=== PATIENT | female | born 1985 | race Caucasian/White ===

== ENCOUNTER 2017-12-04 23:17 | Inpatient (IN) | payer MEDICAID ==
[2017-12-05] MEDS: LACTATED RINGER'S 500 ML IV (00:15)
[2017-12-05 00:27] LABS: ADD MAN DIFF? NO
[2017-12-05] MEDS ORDERED: CARBOPROST 250 MCG INJ IM ×2 (00:30→05:30)
[2017-12-05] MEDS ORDERED: MISOPROSTOL 200 MCG TAB PR ×2 (00:30→05:30)
[2017-12-05] MEDS ORDERED: OXYTOCIN 30 UNITS/LR 500 ML IV ×2 (00:30→05:30)
[2017-12-05] MEDS ORDERED: LACTATED RINGER'S 500 ML IV (00:30)
[2017-12-05] MEDS ORDERED: METHYLERGONOVINE 0.2 MG INJ IM ×2 (00:30→05:30)
[2017-12-05] MEDS: LACTATED RINGER'S 1,000 ML IV ×4 (00:31→22:08)
[2017-12-05 00:48] LABS: BASOPHIL # 0.1 10^3/ul (0.0-0.1); BASOPHILS % 0.4 % (0.0-2.0); EOSINOPHILS # 0.1 10^3/ul (0.0-0.5); EOSINOPHILS % 0.4 % (0.0-7.0); HEMATOCRIT 41.3 % (37.0-47.0); HEMOGLOBIN 14.4 g/dl (12.0-16.0); LYMPHOCYTES # 2.8 10^3/ul (0.8-2.9); LYMPHOCYTES % 19.8 % (15.0-51.0); MEAN CORPUSCULAR HEMOGLOBIN 31.8 pg (29.0-33.0); MEAN CORPUSCULAR HGB CONC 34.9 g/dl (32.0-37.0); MEAN CORPUSCULAR VOLUME 91.2 fl (82.0-101.0); MEAN PLATELET VOLUME 12.2 fl (7.4-10.4); MONOCYTE # 0.9 10^3/ul (0.3-0.9); MONOCYTES % 6.6 % (0.0-11.0); NEUTROPHILS % 71.6 % (39.0-77.0); PLATELET COUNT 159 10^3/UL (140-415); RED BLOOD COUNT 4.53 10^6/ul (4.20-5.40); RED CELL DISTRIBUTION WIDTH 13.5 % (11.5-14.5)
[2017-12-05 00:53] LABS: INR 0.95; PROTIME 12.8 Sec (11.9-14.9)
[2017-12-05 00:54] LABS: PARTIAL THROMBOPLASTIN TIME 27.2 Sec (25.0-35.0)
[2017-12-05 01:25] LABS: HEPATITIS B SURFACE ANTIGEN NEGATIVE (NEGATIVE)
[2017-12-05] MEDS ORDERED: PHENYLephrine (100 MCG/ML) 5ML SYG ×4 (01:28→02:42)
[2017-12-05] MEDS ORDERED: morphine SULFATE/PF (10 MG/10 ML) INJ (01:28)
[2017-12-05] MEDS ORDERED: ONDANSETRON 4 MG INJ (01:28)
[2017-12-05] MEDS ORDERED: OXYTOCIN 10 UNIT INJ (01:28)
[2017-12-05] MEDS: CEFAZOLIN 2 GM/50 ML (PMX) 50 ML IV (01:30)
[2017-12-05] MEDS ORDERED: morphine 2 MG INJ IV (02:00)
[2017-12-05] MEDS ORDERED: NALOXONE (0.4 MG/ML) INJ IV (02:00)
[2017-12-05] MEDS: OXYTOCIN 30 UNITS/LR 500 ML IV (03:57)
[2017-12-05] MEDS: DIPHENHYDRAMINE 50 MG INJ IV (04:08)
[2017-12-05] MEDS: ONDANSETRON 4 MG INJ IV (04:10)
[2017-12-05] MEDS ORDERED: ONDANSETRON 4 MG INJ IV (05:30)
[2017-12-05] MEDS ORDERED: ZOLPIDEM 5 MG TAB PO (05:30)
[2017-12-05] MEDS: IBUPROFEN 600 MG TAB PO ×3 (06:00→17:30)
[2017-12-05] MEDS: KETOROLAC 30 MG INJ IV ×3 (06:02→22:08)
[2017-12-05] MEDS ORDERED: OXYTOCIN 30 UNITS/LR 500 ML BAG IV (07:00)
[2017-12-05] MEDS: SENNA/DOCUSATE NA (8.6MG/50MG) TAB PO ×2 (09:26→21:00)
[2017-12-05 18:35] LABS: RAPID PLASMA REAGIN NONREACTIVE (NR)
[2017-12-05] MEDS: LANOLIN 7 GM TUBE TOP (22:08)
[2017-12-06] MEDS ORDERED: OXYCODONE/ACETAMINOPHEN (5/325) TAB PO (01:25)
[2017-12-06] MEDS ORDERED: DIPHENHYDRAMINE 50 MG INJ IV (01:25)
[2017-12-06] MEDS: OXYCODONE/ACETAMINOPHEN (5/325) TAB PO ×2 (01:56→21:19)
[2017-12-06] MEDS: IBUPROFEN 600 MG TAB PO ×5 (05:38→23:53)
[2017-12-06 07:51] LABS: ADD MAN DIFF? NO
[2017-12-06 08:00] LABS: BASOPHILS % 0.2 % (0.0-2.0); EOSINOPHILS % 0.2 % (0.0-7.0); HEMATOCRIT 36.4 % (37.0-47.0); HEMOGLOBIN 12.5 g/dl (12.0-16.0); LYMPHOCYTES # 2.1 10^3/ul (0.8-2.9); LYMPHOCYTES % 12.5 % (15.0-51.0); MEAN CORPUSCULAR HEMOGLOBIN 31.6 pg (29.0-33.0); MEAN CORPUSCULAR HGB CONC 34.3 g/dl (32.0-37.0); MEAN CORPUSCULAR VOLUME 92.2 fl (82.0-101.0); MEAN PLATELET VOLUME 11.4 fl (7.4-10.4); MONOCYTE # 1.4 10^3/ul (0.3-0.9); MONOCYTES % 7.9 % (0.0-11.0); NEUTROPHIL # 13.4 10^3/ul (1.6-7.5); NEUTROPHILS % 78.1 % (39.0-77.0); PLATELET COUNT 138 10^3/UL (140-415); RED BLOOD COUNT 3.95 10^6/ul (4.20-5.40); RED CELL DISTRIBUTION WIDTH 14.1 % (11.5-14.5)
[2017-12-06 08:00] LABS: WHITE BLOOD COUNT 17.1 10^3/ul (4.8-10.8)
[2017-12-06] MEDS: SENNA/DOCUSATE NA (8.6MG/50MG) TAB PO ×2 (08:26→21:19)
[2017-12-07] MEDS: IBUPROFEN 600 MG TAB PO ×4 (05:51→23:27)
[2017-12-07] MEDS: SENNA/DOCUSATE NA (8.6MG/50MG) TAB PO ×2 (09:19→21:42)
[2017-12-08] MEDS: IBUPROFEN 600 MG TAB PO ×2 (05:37→12:00)
[2017-12-08] MEDS: SENNA/DOCUSATE NA (8.6MG/50MG) TAB PO ×2 (08:16→12:21)
[2017-12-08] MEDS: LANOLIN 7 GM TUBE TOP (08:17)
[2017-12-08] MEDS: DIPHTH/TET/ACEL PERTUSS (ADULT) 0.5 ML VIAL IM* (09:00)
[2017-12-08 10:52] LABS: ADD MAN DIFF? NO
[2017-12-08 10:55] LABS: WHITE BLOOD COUNT 10.1 10^3/ul (4.8-10.8)
[2017-12-08 10:55] LABS: BASOPHILS % 0.3 % (0.0-2.0); EOSINOPHILS # 0.3 10^3/ul (0.0-0.5); EOSINOPHILS % 3.3 % (0.0-7.0); HEMOGLOBIN 13.2 g/dl (12.0-16.0); LYMPHOCYTES % 19.6 % (15.0-51.0); MEAN CORPUSCULAR HEMOGLOBIN 31.4 pg (29.0-33.0); MEAN CORPUSCULAR HGB CONC 33.8 g/dl (32.0-37.0); MEAN CORPUSCULAR VOLUME 92.9 fl (82.0-101.0); MEAN PLATELET VOLUME 11.4 fl (7.4-10.4); MONOCYTE # 0.6 10^3/ul (0.3-0.9); MONOCYTES % 6.3 % (0.0-11.0); NEUTROPHILS % 69.5 % (39.0-77.0); PLATELET COUNT 200 10^3/UL (140-415); RED CELL DISTRIBUTION WIDTH 13.9 % (11.5-14.5)
== END 2017-12-08 13:50 | disposition home or self-care (01) | DRG 766 ==
LOC: OBT 23:17 → L-D 23:19 → PP1 12-05 05:44
PROVIDERS: Obstetrics & Gynecology
PROC: 10D00Z1 Extraction of Products of Conception, Low, Open Approach (ICD-10-PCS; principal; 2017-12-05)
PROC: 0UB70ZZ Excision of Bilateral Fallopian Tubes, Open Approach (ICD-10-PCS; 2017-12-05)
DX: O34.211 Maternal care for low transverse scar from previous cesarean delivery (principal); Z30.2 Encounter for sterilization; Z3A.37 37 weeks gestation of pregnancy; Z37.0 Single live birth
CPT/HCPCS: 85025; 85610; 85730; 86592; 86850; 86900; 86901; 87340; 88302; 90715; 94760; 99464